=== PATIENT | female | born 1940 | race Caucasian/White ===

== ENCOUNTER → 2016-04-26 | Outpatient (CLI) | payer MEDICARE ==
[2016-04-26 09:10] LABS: Blood Urea Nitrogen 16 mg/dL (7-17); Non-African American GFR(MDRD) >60 (>60 ml/min/1.73 sqM)
--- NOTE | 2016-04-26 09:56 | CT ---
EXAMINATION TYPE: CT chest w con DATE OF EXAM: 04/26/2016 9:30 AM COMPARISON: Previous study dated 10/21/2015. HISTORY: Patient has no complaints at time of service. Follow up study for known lung nodules. CT DLP: 301.5 mGycm Automated exposure control for dose reduction was used. CONTRAST: CT scan of the chest is performed with IV Contrast, patient injected with 100 mL of Omnipaque 300. FINDINGS: There are diffuse emphysematous changes throughout the lungs. There is apical scarring bila terally. There are multiple pulmonary nodules. A lesion seen previously near the left hilum has increased in s ize from 3.9 mm to 5 mm. There is a stable 2 mm lesion in the anterior segment of the right upper lob e, best seen on image 14. There is a stable 2 mm subpleural nodule in the lateral segment of the righ t upper lobe best seen on image 16. A lesion seen in the right midlung previously measuring 2.8 mm no w measures 3.4 mm. This is best seen on image 28. Just inferior to this is a 4.2 mm lesion that was n ot visualized previously. This is best seen on image 30. There is a stable 3.6 mm lesion in the poste rior aspect of the right middle lobe, best seen on image 40. No other definite nodules are seen. There has been a previous left mastectomy. There is no significant axillary, internal mammary, mediastinal or hilar adenopathy. There is no pleu ral or pericardial fluid. The heart is not enlarged. The aortic root is upper limits of normal in size measuring 3.5 cm. There is minor aneurysmal dilatat ion of the proximal arch which measures 3.1 cm. The remainder the aorta is normal in caliber. There is a small hiatal hernia. Visualized portions of the upper abdomen are otherwise unremarkable. There is mild hypertrophic spondylosis within the spine. IMPRESSION: 1. STATUS POST LEFT MASTECTOMY. 2. DIFFUSE EMPHYSEMATOUS CHANGE. 3. MULTIPLE PULMONARY NODULES. AT LEAST ONE OF THESE WAS NOT VISUALIZED PREVIOUSLY AND SEVERAL HAVE I NCREASED IN SIZE. THIS IS SUSPICIOUS FOR METASTATIC DISEASE. 4. MILD ANEURYSMAL DILATATION OF THE ASCENDING THORACIC AORTA. 5. SMALL HIATAL HERNIA. 6. MINIMAL DEGENERATIVE CHANGES WITHIN THE SPINE.
[2016-04-26 17:04] VITALS: RESP 18
[2016-04-26 17:06] VITALS: BP 137/82; PULSE 66
== END | disposition home or self-care (01) ==
LOC: RADCTMAIN 08:22
PROVIDERS: ATTEND Family Medicine
DX: R91.8 Other nonspecific abnormal finding of lung field (principal); J43.9 Emphysema, unspecified; K44.9 Diaphragmatic hernia without obstruction or gangrene; I71.2 Thoracic aortic aneurysm, without rupture; Z90.10 Acquired absence of unspecified breast and nipple
CPT/HCPCS: 82565; 84520; 71260; 36415; Q9967

== ENCOUNTER → 2016-08-09 | Outpatient (CLI) | payer MEDICARE ==
[2016-08-09 12:24] LABS: Blood Urea Nitrogen 15 mg/dL (7-17); Non-African American GFR(MDRD) >60 (>60 ml/min/1.73 sqM)
--- NOTE | 2016-08-09 13:19 | CT ---
EXAMINATION TYPE: CT chest w con DATE OF EXAM: 08/09/2016 COMPARISON: Previous study dated 04/26/2016 and a previous PET/CT dated 05/05/2016. HISTORY: Left breast cancer, follow up CT DLP: 356.3 mGycm Automated exposure control for dose reduction was used. CONTRAST: CT scan of the chest is performed with IV Contrast, patient injected with 100 mL of Omnipaque 300. FINDINGS: There has been a previous left-sided mastectomy. Pulmonary nodule in the anterior aspect of the right middle lobe previously measured 6 mm and now lisa sures 4.4 mm. Previous right upper lobe pulmonary nodule measuring 2 mm is barely visible on today's examination. There is a 3.2 mm nodule in the lateral aspect of the right lung which was not definitel y seen previously. There is a stable 2 mm lesion in the lateral segment of the right upper lobe, best seen on image 18. There is a stable 3.6 mm nodule along the major fissure on the right. No definite new nodules are seen. There is no significant axillary, internal mammary, mediastinal or hilar adenopathy. There is no pleural or pericardial fluid. The heart is not enlarged. The aortic root remains stable a t 3.5 cm. The aorta at the level of the proximal arch is aneurysmal measuring 3.2 cm. The remainder t he aorta is normal. There is a small hiatal hernia. Visualized portions of the upper abdomen are unremarkable. There is minor hypertrophic spondylosis within the spine. IMPRESSION: 1. Stable or improved pulmonary nodules. I do not see evidence of new nodularity. 2. Status post left mastectomy. 3. Aneurysmal dilatation of the ascending thoracic aorta. 4. Small hiatal hernia. 5. Mild degenerative changes within the spine.
== END | disposition home or self-care (01) ==
LOC: RADCTMAIN 11:45
PROVIDERS: ATTEND Internal Medicine Hematology & Oncology
DX: C50.919 Malignant neoplasm of unspecified site of unspecified female breast (principal); R91.8 Other nonspecific abnormal finding of lung field; I71.2 Thoracic aortic aneurysm, without rupture; Z90.12 Acquired absence of left breast and nipple
CPT/HCPCS: 82565; 84520; 71260; 36415; Q9967

== ENCOUNTER → 2016-10-30 | Outpatient (CLI) | payer MEDICARE ==
--- NOTE | 2016-10-30 13:58 | MM ---
Reason for exam: additional evaluation requested from prior study. Last mammogram was performed 1 year ago. History: Patient is postmenopausal and has history of breast cancer at age 44. Family history of breast cancer in aunt at age 50. Benign US biopsy breast VAD RT of the right breast, October 11, 2014. Benign excisional biopsy of the right breast, March 29, 2000. Stereotactic core biopsy of the right breast, March 14, 2000. Excisional biopsy of the right breast, 1986. Mastectomy of the left breast, 1985. Core biopsy of the right breast. Excisional biopsy of the left breast. Took hormonal contraceptives for 10 years. Physical Findings: Nurse did not find any significant physical abnormalities on exam. MG 3D Diag Mammo W/Cad RT CC, MLO, and ML view(s) were taken of the right breast. Prior study comparison: October 21, 2015, right breast MG 3d diag mammo w/cad RT. October 11, 2014, right breast MG diagnostic mammo RT wo CAD. The breast tissue is heterogeneously dense. This may lower the sensitivity of mammography. Stable benign calcifications. Previous mammotome biopsy in the right breast. Stable post operative distortion. These results were verbally communicated with the patient and result sheet given to the patient on 10/30/16. ASSESSMENT: Benign, BI-RAD 2 RECOMMENDATION: Follow-up diagnostic mammogram of the right breast in 1 year.
== END | disposition home or self-care (01) ==
LOC: RADMAMWWP 13:20
PROVIDERS: ATTEND Family Medicine
DX: C50.912 Malignant neoplasm of unspecified site of left female breast (principal)
CPT/HCPCS: G0206; G0279

== ENCOUNTER → 2017-10-31 | Outpatient (CLI) | payer MEDICARE ==
--- NOTE | 2017-10-31 12:13 | MM ---
Reason for exam: additional evaluation requested from prior study. Last mammogram was performed 1 year ago. History: Patient is postmenopausal and has history of breast cancer at age 44. Family history of breast cancer in aunt at age 50. Benign US biopsy breast VAD RT of the right breast, October 11, 2014. Benign excisional biopsy of the right breast, March 29, 2000. Stereotactic core biopsy of the right breast, March 14, 2000. Excisional biopsy of the right breast, 1986. Mastectomy of the left breast, 1985. Core biopsy of the right breast. Excisional biopsy of the left breast. Took hormonal contraceptives for 10 years. Physical Findings: Nurse did not find any significant physical abnormalities on exam. MG 3D Diag Mammo W/Cad RT CC and MLO view(s) were taken of the right breast. Prior study comparison: October 30, 2016, right breast MG 3d diag mammo w/cad RT. October 21, 2015, right breast MG 3d diag mammo w/cad RT. There are scattered fibroglandular densities. Finding: There are diffuse/scattered calcifications in the right breast. Previous mammotome biopsy in the right breast x 2. No significant changes in finding since October 30, 2016 and October 21, 2015. These results were verbally communicated with the patient and result sheet given to the patient on 10/31/17. ASSESSMENT: Benign, BI-RAD 2 RECOMMENDATION: Follow-up diagnostic mammogram of the right breast in 1 year.
== END | disposition home or self-care (01) ==
LOC: RADMAMWWP 10:14
PROVIDERS: ATTEND Family Medicine
DX: C50.912 Malignant neoplasm of unspecified site of left female breast (principal)
CPT/HCPCS: 77065; G0279; 77061

== ENCOUNTER → 2018-04-02 | Outpatient (CLI) | payer MEDICARE ==
--- NOTE | 2018-04-02 11:27 | BD ---
EXAMINATION TYPE: Axial Bone Density DATE OF EXAM: 04/02/2018 COMPARISON: 04/11/2010 CLINICAL HISTORY: Height: 66 IN Weight: 181 LBS FRAX RISK QUESTIONS: History of Fracture in Adulthood: YES RT EL[place]OW AGE 55 RISK FACTORS HISTORY OF: Active: YES Postmenopausal woman: YES AGE 49 MEDICATIONS: Additional Medications: LIPITOR, 81 MG ASPIRIN, ZYRTEC Additional History: BREAST CANCER EXAM MEASUREMENTS: Bone mineral densitometry was performed using the ISpeak System. Bone mineral density as measured about the Lumbar spine is: ----- L1-L4(G/cm2): 1.351 T Score Values are as follows: ----- L2: 0.5 ----- L3: 1.8 ----- L4: 2.3 ----- L1-L4: 1.4 Bone mineral density has: Increased 6.5% since study of: 04/11/2010 Bone mineral density about the R hip (g/cm2): 0.906 Bone mineral density about the L hip (g/cm2): 0.939 T Score values are as follows: -----R Neck: -0.9 -----L Neck: -0.7 -----R Total: -0.5 -----L Total: -0.1 Bone mineral density has: Increased 4.0% since study of: 04/11/2010 IMPRESSION: No evidence for osteoporosis or osteopenia. NOTE: T-SCORE=SD OF THE YOUNG ADULT MEAN.
== END | disposition home or self-care (01) ==
LOC: RADBDWWP 08:41
PROVIDERS: ATTEND Family Medicine
DX: Z13.820 Encounter for screening for osteoporosis (principal); M89.9 Disorder of bone, unspecified
CPT/HCPCS: 77080

== ENCOUNTER → 2018-12-08 | Outpatient (CLI) | payer MEDICARE ==
--- NOTE | 2018-12-08 14:30 | MM ---
Reason for exam: additional evaluation requested from prior study. Last mammogram was performed 1 year and 1 month ago. History: Patient is postmenopausal and has history of breast cancer at age 44. Family history of breast cancer in aunt at age 50. Benign US biopsy breast VAD RT of the right breast, October 11, 2014. Benign excisional biopsy of the right breast, March 29, 2000. Stereotactic core biopsy of the right breast, March 14, 2000. Excisional biopsy of the right breast, 1986. Mastectomy of the left breast, 1985. Core biopsy of the right breast. Excisional biopsy of the left breast. Took hormonal contraceptives for 10 years. Physical Findings: Nurse did not find any significant physical abnormalities on exam. MG 3D Diag Mammo W/Cad RT CC and MLO view(s) were taken of the right breast. Prior study comparison: October 31, 2017, right breast MG 3d diag mammo w/cad RT. October 30, 2016, right breast MG 3d diag mammo w/cad RT. The breast tissue is heterogeneously dense. This may lower the sensitivity of mammography. Benign appearing calcifications in the right breast. Right biopsy markers and post surgical change. These results were verbally communicated with the patient and result sheet given to the patient on 12/08/18. ASSESSMENT: Benign, BI-RAD 2 RECOMMENDATION: Follow-up diagnostic mammogram of the right breast in 1 year.
== END | disposition home or self-care (01) ==
LOC: RADMAMWWP 13:18
PROVIDERS: ATTEND Family Medicine
DX: R92.8 Other abnormal and inconclusive findings on diagnostic imaging of breast (principal); Z90.12 Acquired absence of left breast and nipple
CPT/HCPCS: 77065; G0279; 77061

== ENCOUNTER → 2019-10-01 | Outpatient (CLI) | payer MEDICARE ==
--- NOTE | 2019-10-01 15:51 | US ---
EXAMINATION TYPE: US venous doppler duplex LE LT DATE OF EXAM: 10/01/2019 3:35 PM COMPARISON: NONE CLINICAL HISTORY: I80.9 Phlebitis/thrombophlebitis L leg. Pain SIDE PERFORMED: Left TECHNIQUE: The lower extremity deep venous system is examined utilizing real time linear array sonog heriberto with graded compression, doppler sonography and color-flow sonography. VESSELS IMAGED: External Iliac Vein (EIV) Common Femoral Vein Deep Femoral Vein Greater Saphenous Vein * Femoral Vein Popliteal Vein Small Saphenous Vein * Proximal Calf Veins (* superficial vessels Left Leg: Negative for DVT IMPRESSION: 1. No diagnostic evidence of DVT as visualized
== END | disposition home or self-care (01) ==
LOC: RADUSWWP 14:58
PROVIDERS: ATTEND Orthopaedic Surgery
DX: M25.562 Pain in left knee (principal); I80.9 Phlebitis and thrombophlebitis of unspecified site

== ENCOUNTER → 2019-12-21 | Outpatient (CLI) | payer MEDICARE ==
--- NOTE | 2019-12-22 09:58 | MM ---
Reason for exam: additional evaluation requested from prior study. Last mammogram was performed 1 year ago. History: Patient is postmenopausal and has history of breast cancer at age 44. Family history of breast cancer in aunt at age 50. Benign US biopsy breast VAD RT of the right breast, October 11, 2014. Benign excisional biopsy of the right breast, March 29, 2000. Stereotactic core biopsy of the right breast, March 14, 2000. Excisional biopsy of the right breast, 1986. Mastectomy of the left breast, 1985. Core biopsy of the right breast. Excisional biopsy of the left breast. Took hormonal contraceptives for 10 years. Physical Findings: Nurse did not find any significant physical abnormalities on exam. MG 3D Diag Mammo W/Cad RT CC and MLO view(s) were taken of the right breast. Prior study comparison: December 08, 2018, right breast MG 3d diag mammo w/cad RT. October 31, 2017, right breast MG 3d diag mammo w/cad RT. There are scattered fibroglandular densities. Previous mammotome biopsy in the right breast x 2. Central superior nodularity unchanged from 2017. No significant new findings when compared with previous films. These results were verbally communicated with the patient and result sheet given to the patient on 12/21/19. ASSESSMENT: Benign, BI-RAD 2 RECOMMENDATION: Follow-up diagnostic mammogram of the right breast in 1 year.
== END | disposition home or self-care (01) ==
LOC: RADMAMWWP 14:40
PROVIDERS: ATTEND Family Medicine
DX: R92.8 Other abnormal and inconclusive findings on diagnostic imaging of breast (principal)
CPT/HCPCS: 77065; G0279; 77061

== ENCOUNTER → 2019-12-28 | Outpatient (CLI) | payer MEDICARE ==
[2019-12-28 10:59] LABS: African American GFR (CKD) >90 (>60 ml/min/1.73 sqM); Blood Urea Nitrogen 14 mg/dL (7-17); Non-African American GFR(CKD) 85 (>60 ml/min/1.73 sqM)
--- NOTE | 2019-12-29 20:59 | CT ---
EXAMINATION TYPE: CT urogram wo/w con DATE OF EXAM: 12/28/2019 HISTORY: Gross Hematuria CT DLP: 2299mGycm Automated Exposure Control for Dose Reduction was Utilized. CONTRAST: CT scan of the abdomen and pelvis is performed without and with IV Contrast utilizing CT urogram prot ocol, patient injected with 100 mL of Isovue 370. COMPARISON: None FINDINGS: LUNG BASES: Normal. LIVER: Normal. BILIARY SYSTEM: Normal. PANCREAS: Normal. SPLEEN: Normal. ADRENALS: Normal. KIDNEYS: There is synchronous and homogenous renal enhancement and excretion. Left kidney 1.8 cm simp le cyst and 2 additional too small to characterize hypodense lesions. UROTHELIAL SYSTEM: No hydronephrosis or hydroureter. No urolithiasis. No abnormal urothelial enhancem ent, stricture, obstruction, or mass. Urinary bladder is normal with no evidence of thickening or uro thelial mass. BOWEL: No obstruction or thickening. Normal appendix. PERITONEUM: No pneumoperitoneum. No free fluid. Tiny fat-containing supraumbilical ventral hernia. LYMPH NODES: No lymphadenopathy. PELVIS: Normal. VASCULATURE: No abdominal aortic aneurysm. MUSCULOSKELETAL: Degenerative changes of the spine. IMPRESSION: 1. No findings to explain patient's hematuria. No urothelial abnormality or mass. 2. Left renal simple cyst and too small to characterize hypodense lesions.
== END | disposition home or self-care (01) ==
LOC: RADCTMAIN 10:13
PROVIDERS: ATTEND Urology
DX: N28.1 Cyst of kidney, acquired (principal)
CPT/HCPCS: 82565; 84520; 74178; 36415; 74400; Q9967

== ENCOUNTER 2020-08-29 17:57 | Observation (INO) | payer MEDICARE ==
--- NOTE | 2020-08-29 18:35 | ED ---
General Adult HPI - General Chief complaint: Chest Pain Stated complaint: chest pain, dizziness Time Seen by Provider: 08/29/20 18:16 Source: patient, family, RN notes reviewed, old records reviewed Mode of arrival: ambulatory - History of Present Illness Initial comments: This is a 80-year-old female history of breast cancer also a recent diagnosis of atrial fibrillation in June of this year who presents with complaints of dizziness lightheadedness and she states her watch that her heart rate was in atrial fibrillation with verbal rates. She currently is asymptomatic but she felt lightheaded dizzy when she was upright. No complaints at this time. Heart regular was noted be 30 9H [place]. - Related Data Allergies Allergy/AdvReac Type Severity Reaction Status Date / Time No Known Allergies Allergy Verified 08/29/20 18:08 Review of Systems ROS Statement: Those systems with pertinent positive or pertinent negative responses have been documented in the HPI. ROS Other: All systems not noted in ROS Statement are negative. Past Medical History Past Medical History: Atrial Fibrillation History of Any Multi-Drug Resistant Organisms: None Reported Past Surgical History: Breast Surgery Past Psychological History: No Psychological Hx Reported Smoking Status: Former smoker Past Alcohol Use History: None Reported Past Drug Use History: None Reported General Exam - General Exam Comments Initial Comments: Is a well-developed well-nourished awake alert oriented 3 female General appearance: alert, in no apparent distress Head exam: Present: atraumatic, normocephalic, normal inspection Eye exam: Present: normal appearance, PERRL, EOMI. Absent: scleral icterus, conjunctival injection, periorbital swelling ENT exam: Present: normal exam, mucous membranes moist Neck exam: Present: normal inspection. Absent: tenderness, meningismus, lymphadenopathy Respiratory exam: Present: normal lung sounds bilaterally. Absent: respiratory distress, wheezes, rales, rhonchi, stridor Cardiovascular Exam: Present: regular rate, normal rhythm, normal heart sounds. Absent: systolic murmur, diastolic murmur, rubs, gallop, clicks GI/Abdominal exam: Present: soft, normal bowel sounds. Absent: distended, tenderness, guarding, rebound, rigid Extremities exam: Present: normal inspection, full ROM, normal capillary refill. Absent: tenderness, pedal edema, joint swelling, calf tenderness Back exam: Present: normal inspection Neurological exam: Present: alert, oriented X3, CN II-XII intact Psychiatric exam: Present: normal affect, normal mood Skin exam: Present: warm, dry, intact, normal color. Absent: rash Course Vital Signs 08/29/20 08/29/20 18:04 19:23 Temperature 97.9 F Pulse Rate 39 L 58 L Respiratory 18 18 Rate Blood Pressure 165/80 155/80 O2 Sat by Pulse 98 100 Oximetry EKG Findings - EKG Results: EKG: interpreted by DARY, sinus rhythm (Sinus rhythm a 64. Interval 192 QRS duration 134 QT since QTC 46/14 possible left atrial enlargement right bundle- branch block pattern) Medical Decision Making - Medical Decision Making I did discuss findings the patient family and with Dr. Huerta. Patient is clinically stable at this time she'll be admitted with cardiology consultation. - Radiology Data Radiology results: report reviewed (Imaging reviewed no acute findings), image reviewed Disposition Clinical Impression: Bradycardia Disposition: ADMITTED IP TO THIS [facility] Condition: Fair Referrals: Sapphire Boone MD [Primary Care Provider] - 1-2 days
--- NOTE | 2020-08-29 19:50 | XR ---
EXAMINATION TYPE: XR chest 2V DATE OF EXAM: 08/29/2020 COMPARISON: NONE HISTORY: Dysrhythmia TECHNIQUE: 2 views FINDINGS: Heart is normal. Lungs are clear of consolidation. There are no hilar masses. Thoracic aort a is atheromatous. There are chest leads. Costophrenic angles are clear. IMPRESSION: No active cardiopulmonary disease.
[2020-08-29] MEDS ORDERED: NALOXONE 0.4 MG/ML 1 ML VIAL IV PRN (19:53)
[2020-08-29] MEDS: SODIUM CHLORIDE 0.9% 1,000 ML IV SCH (20:13)
[2020-08-29 20:30] LABS: Basophils # (A) 0.1 k/uL (0-0.2); Basophils % (A) 1 %; Eosinophils # (A) 0.3 k/uL (0-0.7); Eosinophils % (A) 4 %; HCT 42.9 % (34.0-46.0); HGB 14.4 gm/dL (11.4-16.0); Lymphocytes # (A) 2.1 k/uL (1.0-4.8); Lymphocytes % (A) 25 %; MCH 31.4 pg (25.0-35.0); MCHC 33.7 g/dL (31.0-37.0); MCV 93.2 fL (80.0-100.0); Mean Platelet Volume 8.2; Monocytes # (A) 0.8 k/uL (0-1.0); Monocytes % (A) 10 %; Neutrophils % (A) 59 %; Platelet Count 261 k/uL (150-450); WBC 8.4 k/uL (3.8-10.6)
[2020-08-29 20:39] LABS: INR 0.9 (<1.2); Partial Thromboplastin Time 23.7 sec (22.0-30.0); Prothrombin Time 10.2 sec (9.0-12.0)
[2020-08-29 20:41] LABS: ALT 27 U/L (4-34); AST 34 U/L (14-36); African American GFR (CKD) >90 (>60 ml/min/1.73 sqM); Albumin 3.7 g/dL (3.5-5.0); Alkaline Phosphatase 111 U/L (38-126); Anion Gap 5 mmol/L; Blood Urea Nitrogen 16 mg/dL (7-17); Calcium 9.1 mg/dL (8.4-10.2); Carbon Dioxide 27 mmol/L (22-30); Chloride 109 mmol/L (98-107); Creatine Kinase 58 U/L (30-135); Glucose 87 mg/dL (74-99); Magnesium 2.4 mg/dL (1.6-2.3); Non-African American GFR(CKD) 81 (>60 ml/min/1.73 sqM); Potassium 4.6 mmol/L (3.5-5.1); Sodium 141 mmol/L (137-145); Total Bilirubin 0.3 mg/dL (0.2-1.3); Total Protein 6.2 g/dL (6.3-8.2)
[2020-08-29] MEDS: APIXABAN 5 MG TAB PO SCH (23:57)
[2020-08-29] MEDS: ATORVASTATIN 10 MG TAB PO SCH (23:57)
[2020-08-30 07:28] LABS: Basophils # (A) 0.1 k/uL (0-0.2); Basophils % (A) 1 %; Eosinophils # (A) 0.3 k/uL (0-0.7); Eosinophils % (A) 4 %; HCT 43.4 % (34.0-46.0); HGB 14.7 gm/dL (11.4-16.0); Lymphocytes # (A) 1.8 k/uL (1.0-4.8); Lymphocytes % (A) 24 %; MCH 31.8 pg (25.0-35.0); MCHC 33.8 g/dL (31.0-37.0); Mean Platelet Volume 7.7; Monocytes # (A) 0.6 k/uL (0-1.0); Monocytes % (A) 8 %; Neutrophils # (A) 4.5 k/uL (1.3-7.7); Neutrophils % (A) 61 %; Platelet Count 257 k/uL (150-450); RBC 4.62 m/uL (3.80-5.40); WBC 7.3 k/uL (3.8-10.6)
[2020-08-30 07:34] LABS: ALT 25 U/L (4-34); AST 33 U/L (14-36); African American GFR (CKD) >90 (>60 ml/min/1.73 sqM); Albumin 3.7 g/dL (3.5-5.0); Alkaline Phosphatase 112 U/L (38-126); Anion Gap 4 mmol/L; Blood Urea Nitrogen 15 mg/dL (7-17); Calcium 8.9 mg/dL (8.4-10.2); Carbon Dioxide 29 mmol/L (22-30); Chloride 110 mmol/L (98-107); Glucose 96 mg/dL (74-99); Non-African American GFR(CKD) 85 (>60 ml/min/1.73 sqM); Potassium 4.5 mmol/L (3.5-5.1); Sodium 143 mmol/L (137-145); Total Bilirubin 0.5 mg/dL (0.2-1.3); Total Protein 6.1 g/dL (6.3-8.2)
[2020-08-30] MEDS: ZINC SULFATE 220 MG CAP PO SCH (08:05)
[2020-08-30] MEDS: APIXABAN 5 MG TAB PO SCH ×2 (08:05→19:51)
[2020-08-30] MEDS: CHOLECALCIFEROL 25 MCG (1000 IU) TABLET PO SCH (08:05)
[2020-08-30] MEDS: ASCORBIC ACID 500 MG TAB PO SCH (08:05)
[2020-08-30] MEDS ORDERED: NON FORMULARY DRUG (Biotin [Biotin] 10,000 MCG Capsule) PO SCH (09:00)
[2020-08-30] MEDS ORDERED: ASPIRIN 81 MG PO SCH (09:00)
[2020-08-30] MEDS ORDERED: NON FORMULARY DRUG (Selenium [Selenium] 100 MCG Tablet) PO SCH (09:00)
[2020-08-30] MEDS ORDERED: amLODIPine 5 MG TAB PO SCH (09:30)
--- NOTE | 2020-08-30 12:40 | P.CRDCN ---
History of Present Illness History of present illness: HISTORY OF PRESENTING ILLNESS This is a pleasant 80-year-old female past medical history significant for paroxysmal atrial fibrillation, hyperlipidemia. She follows with Dr. Cici Ovalle in [place]. We have been asked to see in consultation for atrial fibrillation and bradycardia. She has been diagnosed with atrial fibrillation this year. She follows with Dr. Ovalle. She had a [employer] event monitor placed last month. She also recently had a stress test and echocardiogram earlier this month with her gerentological physiotherapist. Yesterday afternoon around 4pm she was with her daughter doing her normal daily activities. She began to have lightheadedness, dizziness, felt that she may pass out. She does occasionally feel palpitations. She monitored her heart rate on her [employer] and it read as her heart rate in the 150s, then would drop down and she knew she was in atrial fibrillation. She did take her metoprolol tartrate 25mg yesterday around 4-5pm when her heart rate was elevated. She states this has happened to her 3 times and she is always symptomatic. She was called by her gerentological physiotherapist office that "her heart had stopped" when asked more in detail she states she had around 10 second pauses on the monitor and was told to go to the emergency department for a pacemaker. She was told her stress test and echocardiogram were normal. Patient denies syncope or loss of consciousness, chest pain, shortness of breath, lower extremity edema, fatigue, weakness. Denies symptoms of orthopnea or PND. Denies history of coronary artery disease, diabetes, stroke, [place]. Her current home daily cardiac meds include metoprolol titrate 25 mg twice a day, atorvastatin 10 mg nightly, aspirin 81 mg daily, Eliquis 5 mg twice a day. Denies alcohol use. She is a nonsmoker. DIAGNOSTICS EKG reveals sinus rhythm, heart rate 64, right bundle-branch block, T wave inversion in lead V2 and V3. EKG 08/30 3:30 AM shows sinus bradycardia heart rate 57, right bundle-branch block, T wave inversions in V2. No prior EKGs to compare. Telemetry tracings indicate sinus mechanism heart rate 50-60, no pauses and no atrial fibrillation noted Chest xray no active cardiopulmonary process. Laboratory reviewed, CBC unremarkable, sodium 141, potassium 4.6, BUN 16, serum creatinine 0.71, magnesium 2.4, liver enzymes within normal limits, TSH within normal limits, troponin negative 1, COVID-19 negative REVIEW OF SYSTEMS At the time of my exam: CONSTITUTIONAL: Denies fever or chills. CARDIOVASCULAR: +palpitations Denies chest pain, shortness of breath, orthopnea, PND RESPIRATORY: Denies cough. GASTROINTESTINAL: Denies abdominal pain, diarrhea, constipation, nausea or vomiting. MUSCULOSKELETAL: Denies myalgias. NEUROLOGIC: +lightheadedness, +dizziness, +pre-syncope Denies numbness, tingling, headacbe or weakness. ENDOCRINE: Denies fatigue, weight change, polydipsia or polyurina. GENITOURINARY: Denies burning, hematuria or urgency with micturation. HEMATOLOGIC: Denies history of anemia or bleeding. PHYSICAL EXAMINATION CONSTITUTIONAL: No apparent distress. HEENT: Head is normocephalic. Pupils are equal, round. Sclerae anicteric. Mucous membranes of the mouth are moist. No JVD. No carotid bruit. CHEST EXAMINATION: Lungs are clear to auscultation. No chest wall tenderness is noted on palpation or with deep breathing. HEART EXAMINATION: Regular rate and rhythm. S1, S2 heard. No murmurs, gallops or rub. ABDOMEN: Soft, nontender. Positive bowel sounds. EXTREMITIES: 2+ peripheral pulses, no lower extremity edema and no calf tenderness. SKIN: intact NEUROLOGIC EXAMINATION: Patient is awake, alert and oriented x3. ASSESSMENT Lightheadedness, Dizziness Paroxysmal atrial fibrillation -[id number] score 4. On Eliquis 5mg BID. currently maintaining sinus mechanism Bradycardia possible sick sinus syndrome Hypertension PLAN -Will hold patient's metoprolol tartrate -Continue cardiac telemetry for 24 hours -Start amlodipine 5mg daily for hypertension -Continue anticoagulation Eliquis 5mg BID -Continue statin -Will obtain records from patient's event monitor in regards to the event that happened yesterday -Will obtain records from Dr. Ovalle office -Further recommendations based on clinical course Nurse Practitioner note has been reviewed, I agree with a documented findings and plan of care. Patient was seen and examined. Past Medical History Past Medical History: Atrial Fibrillation History of Any Multi-Drug Resistant Organisms: None Reported Past Surgical History: Breast Surgery Past Psychological History: No Psychological Hx Reported Smoking Status: Former smoker Past Alcohol Use History: None Reported Past Drug Use History: None Reported Medications and Allergies Home Medications Medication Instructions Recorded Confirmed Type Apixaban [Eliquis] 5 mg PO BID 08/29/20 08/29/20 History Ascorbic Acid [Vitamin C] 500 mg PO DAILY 08/29/20 08/29/20 History Aspirin EC [Ecotrin Low Dose] 81 mg PO DAILY 08/29/20 08/29/20 History Atorvastatin [Lipitor] 10 mg PO HS 08/29/20 08/29/20 History Biotin 10,000 mcg PO DAILY 08/29/20 08/29/20 History Cholecalciferol [Vitamin D3 (25 50 mcg PO DAILY 08/29/20 08/29/20 History Mcg = 1000 Iu)] Metoprolol Tartrate 25 mg PO BID 08/29/20 08/29/20 History Selenium 100 mcg PO DAILY 08/29/20 08/29/20 History Zinc 50 mg PO DAILY 08/29/20 08/29/20 History Allergies Allergy/AdvReac Type Severity Reaction Status Date / Time No Known Allergies Allergy Verified 08/29/20 20:59 Physical Exam Vitals: Vital Signs Temp Pulse Pulse Resp BP BP Pulse Ox 08/30/20 08:05 98 F 54 L 16 176/82 97 08/30/20 04:00 53 L 18 182/95 98 08/30/20 00:00 60 18 162/81 96 08/29/20 21:33 97.3 F L 49 L 18 181/88 96 08/29/20 21:17 97.9 F 54 L 18 160/92 96 08/29/20 20:20 54 L 18 160/92 96 08/29/20 19:23 58 L 18 155/80 100 08/29/20 18:04 97.9 F 39 L 18 165/80 98 Intake and Output 08/29/20 08/30/20 08/30/20 22:59 06:59 14:59 Intake Total 960 0 0 Balance 960 0 0 Intake: Oral 960 0 0 Other: Voiding Method Toilet # Voids 1 1 Weight 79.379 kg 81.3 kg Results 08/30/20 06:18 08/30/20 06:18 Cardiac Enzymes 08/29/20 08/29/20 08/30/20 Range/Units 19:35 19:35 06:18 AST 34 33 (14-36) U/L Troponin I <0.012 (0.000-0.034) ng/mL Coagulation 08/29/20 Range/Units 19:35 PT 10.2 (9.0-12.0) sec APTT 23.7 (22.0-30.0) sec CBC 08/29/20 08/30/20 Range/Units 19:35 06:18 WBC 8.4 7.3 (3.8-10.6) k/uL RBC 4.60 4.62 (3.80-5.40) m/uL Hgb 14.4 14.7 (11.4-16.0) gm/dL Hct 42.9 43.4 (34.0-46.0) % Plt Count 261 257 (150-450) k/uL Comprehensive Metabolic Panel 08/29/20 08/30/20 Range/Units 19:35 06:18 Sodium 141 143 (137-145) mmol/L Potassium 4.6 4.5 (3.5-5.1) mmol/L Chloride 109 H 110 H (98-107) mmol/L Carbon Dioxide 27 29 (22-30) mmol/L BUN 16 15 (7-17) mg/dL Creatinine 0.71 0.61 (0.52-1.04) mg/dL Glucose 87 96 (74-99) mg/dL Calcium 9.1 8.9 (8.4-10.2) mg/dL AST 34 33 (14-36) U/L ALT 27 25 (4-34) U/L Alkaline Phosphatase 111 112 (38-126) U/L Total Protein 6.2 L 6.1 L (6.3-8.2) g/dL Albumin 3.7 3.7 (3.5-5.0) g/dL Current Medications Generic Name Dose Route Start Last Admin Trade Name Freq PRN Reason Stop Dose Admin Apixaban 5 mg 08/29/20 23:00 08/30/20 08:05 Apixaban 5 Mg Tab PO 5 mg BID KENDELL Administration Protocol Ascorbic Acid 500 mg 08/30/20 09:00 08/30/20 08:05 Ascorbic Acid 500 Mg Tab PO 500 mg DAILY KENDELL Administration Aspirin 81 mg 08/30/20 09:00 08/30/20 08:05 Aspirin 81 Mg PO 81 mg DAILY KENDELL Administration Atorvastatin Calcium 10 mg 08/29/20 23:00 08/29/20 23:57 Atorvastatin 10 Mg Tab PO 10 mg HS KENDELL Administration Cholecalciferol 50 mcg 08/30/20 09:00 08/30/20 08:05 Cholecalciferol 25 Mcg (1000 Iu) Tablet PO 50 mcg DAILY KENDELL Administration Sodium Chloride 1,000 mls @ 20 mls/hr 08/29/20 20:00 08/29/20 20:13 Saline 0.9% IV 20 mls/hr .Q24H KENDELL Administration Naloxone HCl 0.2 mg 08/29/20 19:53 Naloxone 0.4 Mg/Ml 1 Ml Vial IV Q2M PRN Opioid Reversal Zinc Sulfate 220 mg 08/30/20 09:00 08/30/20 08:05 Zinc Sulfate 220 Mg Cap PO 220 mg DAILY KENDELL Administration Intake and Output 08/29/20 08/30/20 08/30/20 22:59 06:59 14:59 Intake Total 960 0 0 Balance 960 0 0 Intake: Oral 960 0 0 Other: Voiding Method Toilet # Voids 1 1 Weight 79.379 kg 81.3 kg 08/30/20 06:18 08/30/20 06:18
[2020-08-30] MEDS ORDERED: amLODIPine 5 MG TAB PO STA (12:50)
--- NOTE | 2020-08-30 18:05 | P.HPIM ---
History of Present Illness H&P Date: 08/30/20 Anisha De La Rosa, is an 80 year old female who presented to [facility] with a chief complaint of dizziness and lightheadedness She was evaluated in emergency room vital examination on presentation revealed a temperature of 96.6 pulse 59 respiration 16 blood pressure 163/93 pulse ox 96% on room air, patient was noticed to have evidence of bradycardia with heart rate in the 40s and 50s Laboratory data reveals a white blood count of 8.4 hemoglobin 14.4 platelet count 261 BUN 16 creatinine 0.71 Anderson virus PCR was negative Chest x-ray done in the emergency room did not reveal any acute cardiopulmonary disease, EKG done in the emergency room revealed normal sinus rhythm with right bundle branch block Patient was admitted to telemetry floor cardiology consultation was requested Her past medical history is significant for history of hypertension, history of hyperlipidemia, history of atrial fibrillation, history of breast cancer, there is a history of remote tobacco use patient stated that she quit 30 years ago. On review of systems at this time Patient is alert and oriented x 3 in no distress, she denies any complaints there is no fever or chills no headache or dizziness no chest pain no shortness of breath no palpitation no cough no nausea or vomiting no abdominal pain no diarrhea no blood in the stools no burning with urination no frequency or urgency and no hematuria, there is no weakness or numbness in any of the extremities no change in vision speech or gait. Past Medical History Past Medical History: Atrial Fibrillation History of Any Multi-Drug Resistant Organisms: None Reported Past Surgical History: Breast Surgery Past Psychological History: No Psychological Hx Reported Smoking Status: Former smoker Past Alcohol Use History: None Reported Past Drug Use History: None Reported Medications and Allergies Home Medications Medication Instructions Recorded Confirmed Type Apixaban [Eliquis] 5 mg PO BID 08/29/20 08/29/20 History Ascorbic Acid [Vitamin C] 500 mg PO DAILY 08/29/20 08/29/20 History Aspirin EC [Ecotrin Low Dose] 81 mg PO DAILY 08/29/20 08/29/20 History Atorvastatin [Lipitor] 10 mg PO HS 08/29/20 08/29/20 History Biotin 10,000 mcg PO DAILY 08/29/20 08/29/20 History Cholecalciferol [Vitamin D3 (25 50 mcg PO DAILY 08/29/20 08/29/20 History Mcg = 1000 Iu)] Metoprolol Tartrate 25 mg PO BID 08/29/20 08/29/20 History Selenium 100 mcg PO DAILY 08/29/20 08/29/20 History Zinc 50 mg PO DAILY 08/29/20 08/29/20 History Allergies Allergy/AdvReac Type Severity Reaction Status Date / Time No Known Allergies Allergy Verified 08/29/20 20:59 Physical Exam Vitals: Vital Signs Temp Pulse Pulse Resp BP BP Pulse Ox 08/30/20 08:05 98 F 54 L 16 176/82 97 08/30/20 04:00 53 L 18 182/95 98 08/30/20 00:00 60 18 162/81 96 08/29/20 21:33 97.3 F L 49 L 18 181/88 96 08/29/20 21:17 97.9 F 54 L 18 160/92 96 08/29/20 20:20 54 L 18 160/92 96 08/29/20 19:23 58 L 18 155/80 100 08/29/20 18:04 97.9 F 39 L 18 165/80 98 Intake and Output 08/29/20 08/30/20 08/30/20 22:59 06:59 14:59 Intake Total 960 0 0 Balance 960 0 0 Intake: Oral 960 0 0 Other: Voiding Method Toilet Toilet # Voids 1 1 Weight 79.379 kg 81.3 kg In general patient is alert and oriented x 3 in no distress HEENT head normocephalic and atraumatic Neck is supple no JVD no goiter no lymphadenopathy no carotid bruit Chest examination is clear to auscultation no crackles no wheezing Cardiac exam reveals regular heart sounds S1 and S2 no gallops no murmurs Abdomen is soft nontender no organomegaly with normal bowel sounds Extremity exam reveals no edema no cyanosis or clubbing Neurological examination reveals no gross focal deficits Results CBC & Chem 7: 08/30/20 06:18 08/30/20 06:18 Labs: Abnormal Lab Results - Last 24 Hours (Table) 08/29/20 08/30/20 Range/Units 19:35 06:18 Chloride 109 H 110 H (98-107) mmol/L Magnesium 2.4 H (1.6-2.3) mg/dL Total Protein 6.2 L 6.1 L (6.3-8.2) g/dL Assessment and Plan Plan: Dizziness and lightheadedness Episodes of bradycardia with heart rate as low at 39 Underlying history of hypertension Underlying history of hyperlipidemia At this time patient is admitted to telemetry floor, she was maintained on metop rolol at home which was discontinued on admission Echocardiogram and carotid Doppler were ordered Cardiology consultation was requested
[2020-08-30] MEDS: ATORVASTATIN 10 MG TAB PO SCH (19:52)
[2020-08-30] MEDS: SODIUM CHLORIDE 0.9% 1,000 ML IV SCH (19:53)
[2020-08-30 20:46] VITALS: TEMP 97.9
--- NOTE | 2020-08-31 08:15 | US ---
EXAMINATION TYPE: US carotid duplex BILAT DATE OF EXAM: 08/31/2020 COMPARISON: NONE CLINICAL HISTORY: Dizziness. EXAM MEASUREMENTS: RIGHT: Peak Systolic Velocity (PSV) cm/sec ----- Right CCA: 62.4 ----- Right ICA: 59.3 ----- Right ECA: 69.3 ICA/CCA ratio: 1.0 RIGHT: End Diastole cm/sec ----- Right CCA: 18.2 ----- Right ICA: 20.9 ----- Right ECA: 10.2 LEFT: Peak Systolic Velocity (PSV) cm/sec ----- Left CCA: 56.7 ----- Left ICA: 69.6 ----- Left ECA: 64.8 ICA/CCA ratio: 1.2 LEFT: End Diastole cm/sec ----- Left CCA: 18.9 ----- Left ICA: 27.4 ----- Left ECA: 14.0 VERTEBRALS (direction of flow): Right Vertebral: Antegrade Left Vertebral: Antegrade Rhythm: Normal No significant velocity elevations, mild plaque. Some intimal thickening may be present. IMPRESSION: 1. Intimal thickening and mild atheromatous plaquing without significant flow-limiting stenosis. Criteria for Assigning % of Stenosis / Diameter reduction (Estimation based on the indirect measurements of the internal carotid artery velocities (ICA PSV). 1. Normal (no stenosis)=ICA PSV < 125 cm/s: ratio < 2.0: ICA EDV<40 cm/s. 2. Less than 50% stenosis=ICA PSV < 125 cm/s: ratio < 2.0: ICA EDV<40 cm/s. 3. 50 to 69% stenosis=ICA PSV of 125 to 230 cm/s: ration 2.0 ? 4.0: ICA EDV 40-100 cm/s. 4. Greater than 70% stenosis to near occlusion= ICA PSV > 230 cm/s: ratio > 4.0: ICA EDV > 100 cm/s. 5. Near occlusion= ICA PSV velocities may be low or undetectable: variable ratio and ICA EDV. 6. Total occlusion=unable to detect flow.
[2020-08-31] MEDS ORDERED: LOSARTAN 25 MG TAB PO SCH (09:00)
[2020-08-31] MEDS ORDERED: LOSARTAN-HCTZ 50-12.5 MG 1 EACH TAB PO SCH (09:00)
[2020-08-31] MEDS ORDERED: amLODIPine 10 MG TAB PO SCH (09:00)
[2020-08-31] MEDS: CHOLECALCIFEROL 25 MCG (1000 IU) TABLET PO SCH (09:06)
[2020-08-31] MEDS: APIXABAN 5 MG TAB PO SCH (09:06)
[2020-08-31] MEDS: ASCORBIC ACID 500 MG TAB PO SCH (09:06)
[2020-08-31] MEDS: ZINC SULFATE 220 MG CAP PO SCH (09:06)
[2020-08-31] MEDS ORDERED: amLODIPine 5 MG TAB PO STA (09:09)
[2020-08-31 09:35] LABS: Basophils # (A) 0.1 k/uL (0-0.2); Basophils % (A) 1 %; Eosinophils # (A) 0.2 k/uL (0-0.7); Eosinophils % (A) 3 %; HCT 46.5 % (34.0-46.0); HGB 15.4 gm/dL (11.4-16.0); Lymphocytes # (A) 1.4 k/uL (1.0-4.8); Lymphocytes % (A) 20 %; MCH 31.4 pg (25.0-35.0); MCHC 33.1 g/dL (31.0-37.0); MCV 94.7 fL (80.0-100.0); Mean Platelet Volume 7.6; Monocytes # (A) 0.5 k/uL (0-1.0); Monocytes % (A) 7 %; Neutrophils # (A) 4.5 k/uL (1.3-7.7); Neutrophils % (A) 67 %; Platelet Count 265 k/uL (150-450); RBC 4.91 m/uL (3.80-5.40); WBC 6.8 k/uL (3.8-10.6)
[2020-08-31 09:42] LABS: ALT 25 U/L (4-34); AST 30 U/L (14-36); African American GFR (CKD) >90 (>60 ml/min/1.73 sqM); Albumin 3.8 g/dL (3.5-5.0); Alkaline Phosphatase 104 U/L (38-126); Anion Gap 6 mmol/L; Blood Urea Nitrogen 16 mg/dL (7-17); Calcium 9.1 mg/dL (8.4-10.2); Carbon Dioxide 27 mmol/L (22-30); Chloride 108 mmol/L (98-107); Glucose 125 mg/dL (74-99); Non-African American GFR(CKD) 83 (>60 ml/min/1.73 sqM); Potassium 3.9 mmol/L (3.5-5.1); Sodium 141 mmol/L (137-145); Total Bilirubin 0.4 mg/dL (0.2-1.3); Total Protein 6.2 g/dL (6.3-8.2)
[2020-08-31 10:28] VITALS: RESP 20
--- NOTE | 2020-08-31 11:43 | P.PN ---
Subjective This is a pleasant 80-year-old female past medical history significant for paroxysmal atrial fibrillation, hyperlipidemia. She follows with Dr. Cici Ovalle in [place]. We have been asked to see in consultation for atrial fibrillation and bradycardia. She has been diagnosed with atrial fibrillation this year. She follows with Dr. Ovalle. She had a [employer] event monitor placed last month. She also recently had a stress test and echocardiogram earlier this month with her patient safety tech. Yesterday afternoon around 4pm she was with her daughter doing her normal daily activities. She began to have lightheadedness, dizziness, felt that she may pass out. She does occasionally feel palpitations. She monitored her heart rate on her [employer] and it read as her heart rate in the 150s, then would drop down and she knew she was in atrial fibrillation. She did take her metoprolol tartrate 25mg yesterday around 4-5pm when her heart rate was elevated. She states this has happened to her 3 times and she is always symptomatic. She was called by her patient safety tech office that "her heart had stopped" when asked more in detail she states she had around 10 second pauses on the monitor and was told to go to the emergency department for a pacemaker. She was told her stress test and echocardiogram were normal. Patient denies syncope or loss of consciousness, chest pain, shortness of breath, lower extremity edema, fatigue, weakness. Denies symptoms of orthopnea or PND. Denies history of coronary artery disease, diabetes, stroke, [place]. Family history includes mother having a CVA and ND, diabetes. Father had an ND. Her current home daily cardiac meds include metoprolol titrate 25 mg twice a day, atorvastatin 10 mg nightly, aspirin 81 mg daily, Eliquis 5 mg twice a day. Denies alcohol use. She is a nonsmoker. EKG reveals sinus rhythm, heart rate 64, right bundle-branch block, T wave inversion in lead V2 and V3. EKG 08/30 3:30 AM shows sinus bradycardia heart rate 57, right bundle-branch block, T wave inversions in V2. No prior EKGs to compare. 08/31/2020: Patient seen and examined at bedside, no acute distress. Blood pressure remains elevated but improving BP 160/92, heart rate 67, afebrile, maintaining oxygen saturations 96% on room air. Telemetry tracings indicate sinus mechanism heart rate 50-60s, no pauses and no atrial fibrillation noted while inpatient. Laboratory data reviewed, CBC unremarkable, sodium 141, potassium 3.9, BUN 16, serum creatinine 2.67, TSH within normal limits. Patient currently being mainta ined on Eliquis 5 mg twice a day, atorvastatin 10 mg daily, losartanhydrochlorothiazide 5012.5 mg daily Records obtained from Dr. Ovalle Office: -Lexiscan stress test 08/04/2020- normal, no reversible ischemia noted, no symptoms reported during test -Echocardiogram 08/04/2020 revealed ejection fraction of 65%, trace tricuspid regurgitation, trace mitral regurgitation -During patient's follow-up visit patients blood pressure was stable blood pressure 116/68 PHYSICAL EXAMINATION CONSTITUTIONAL: No apparent distress. HEENT: Head is normocephalic. No JVD. No carotid bruit. CHEST EXAMINATION: Lungs are clear to auscultation. HEART EXAMINATION: Regular rate and rhythm. S1, S2 heard. No murmurs, gallops or rub. ABDOMEN: Soft, nontender. Positive bowel sounds. EXTREMITIES: 2+ peripheral pulses, no lower extremity edema and no calf tenderness. NEUROLOGIC EXAMINATION: Patient is awake, alert and oriented x3. ASSESSMENT Lightheadedness, Dizziness Paroxysmal atrial fibrillation -[id number] score 4. On Eliquis 5mg BID. currently maintaining sinus mechanism Bradycardia possible sick sinus syndrome Hypertension PLAN -Will continue to hold patient's metoprolol tartrate -Discontinue amlodipine -Start losartan-Hctz 50-12.5mg daily -Continue anticoagulation Eliquis 5mg BID . No need for aspirin at this time -Continue statin -From cardiology perspective, patient without any signs of pauses or HR below 50s on telemetry for over 24 hours. We were unable to obtain records from [employer] heart monitor device at this time after multiple attempts. We obtained and reviewed records from Dr. Ovalle office and no acute findings noted. We recommend patient continue her heart monitor off her metoprolol tartrate to assess her rhythm and have close follow up with Dr. Ovalle. This was discussed with the patient in length. -Patient is stable to be discharged with above recommendations. Nurse Practitioner note has been reviewed, I agree with a documented findings and plan of care. Patient was seen and examined. Objective - Vital Signs Vital signs: Vital Signs Temp 97.9 F 08/31/20 08:00 Pulse 67 08/31/20 08:00 Resp 20 08/31/20 08:00 BP 168/92 08/31/20 08:00 Pulse Ox 96 08/31/20 08:00 Intake & Output 08/30/20 08/31/20 08/31/20 18:59 06:59 18:59 Intake Total 1418 1440 240 Balance 1418 1440 240 Weight 80.2 kg Intake: Intake, IV Titration 120 Amount Sodium Chloride 0.9% 1, 120 000 ml @ 20 mls/hr IV . Q24H [facility] Rx#:[id number] Oral 1298 1440 240 Other: Voiding Method Toilet Toilet # Voids 2 1 - Labs CBC & Chem 7: 08/31/20 09:11 08/31/20 09:11 Labs: Abnormal Lab Results - Last 24 Hours (Table) 08/31/20 08/31/20 Range/Units 09:11 09:11 Hct 46.5 H (34.0-46.0) % Chloride 108 H (98-107) mmol/L Glucose 125 H (74-99) mg/dL Total Protein 6.2 L (6.3-8.2) g/dL
[2020-08-31 12:43] VITALS: BP 165/76; PULSE 64
--- NOTE | 2020-08-31 12:58 | P.DS ---
Providers Date of admission: 08/29/20 19:55 Expected date of discharge: 08/31/20 Attending physician: Veronica Huerta Consults: 08/29/20 19:54 Consult Physician Routine Consulting Provider: Kadeem Barron Consult Reason/Comments: Bradycardia Do you want consulting provider notified?: Yes Primary care physician: Sapphire Boone Hospital Course: Discharge diagnosis Dizziness and lightheadedness Episodes of bradycardia with heart rate as low at 39 Underlying history of hypertension Underlying history of hyperlipidemia Carotid Doppler completed showing intimal thickening and mild documented plaquing without significant flow-limiting stenosis Hospital course Anisha De La Rosa, is an 80 year old female who presented to [facility] with a chief complaint of dizziness and lightheadedness She was evaluated in emergency room vital examination on presentation revealed a temperature of 96.6 pulse 59 respiration 16 blood pressure 163/93 pulse ox 96% on room air, patient was noticed to have evidence of bradycardia with heart rate in the 40s and 50s Laboratory data reveals a white blood count of 8.4 hemoglobin 14.4 platelet count 261 BUN 16 creatinine 0.71 Anderson virus PCR was negative Chest x-ray done in the emergency room did not reveal any acute cardiopulmonary disease, EKG done in the emergency room revealed normal sinus rhythm with right bundle branch block Patient was admitted to telemetry floor cardiology consultation was requested Her past medical history is significant for history of hypertension, history of hyperlipidemia, history of atrial fibrillation, history of breast cancer, there is a history of remote tobacco use patient stated that she quit 30 years ago. On review of systems at this time Patient is alert and oriented x 3 in no distress, she denies any complaints there is no fever or chills no headache or dizziness no chest pain no shortness of breath no palpitation no cough no nausea or vomiting no abdominal pain no diarrhea no blood in the stools no burning with urination no frequency or urgency and no hematuria, there is no weakness or numbness in any of the extremities no change in vision speech or gait. On 08/31/2020 patient alert and oriented 3 currently sitting up in chair. Patient reports that she has been up ambulating without any further episodes of dizziness. Heart rate has remained in the 60s 70s over the past 24 hours. Per cardiology Lopressor has been DC'd and patient has been started on losartan hydrochlorothiazide daily. Patient maintained on anticoagulation eliquis 5 mg twice a day. Aspirin DC'd per cardiology. Per cardiology patient to continue her heart monitor off her Lopressor to assess her rhythm and follow-up with her registered vascular technologist (rvt). Per cardiology patient is stable to be discharged. At this time patient denies chest pain or shortness of breath. Patient denies nausea vomiting or diarrhea. Patient denies any urinary burning or frequency. Patient Condition at Discharge: Stable Plan - Discharge Summary Discharge Rx Participant: Yes New Discharge Prescriptions: New Losartan-Hctz 50-12.5 mg [Hyzaar 50-12.5] 1 each PO DAILY 14 Days #14 tab Continue Atorvastatin [Lipitor] 10 mg PO HS Apixaban [Eliquis] 5 mg PO BID Selenium 100 mcg PO DAILY Ascorbic Acid [Vitamin C] 500 mg PO DAILY Biotin 10,000 mcg PO DAILY Zinc 50 mg PO DAILY Cholecalciferol [Vitamin D3 (25 Mcg = 1000 Iu)] 50 mcg PO DAILY Discontinued Metoprolol Tartrate 25 mg PO BID Aspirin EC [Ecotrin Low Dose] 81 mg PO DAILY Discharge Medication List Apixaban [Eliquis] 5 mg PO BID 08/29/20 [History] Ascorbic Acid [Vitamin C] 500 mg PO DAILY 08/29/20 [History] Atorvastatin [Lipitor] 10 mg PO HS 08/29/20 [History] Biotin 10,000 mcg PO DAILY 08/29/20 [History] Cholecalciferol [Vitamin D3 (25 Mcg = 1000 Iu)] 50 mcg PO DAILY 08/29/20 [History] Selenium 100 mcg PO DAILY 08/29/20 [History] Zinc 50 mg PO DAILY 08/29/20 [History] Losartan-Hctz 50-12.5 mg [Hyzaar 50-12.5] 1 each PO DAILY 14 Days #14 tab 08/31/20 [Rx] Follow up Appointment(s)/Referral(s): Sapphire Boone MD [Primary Care Provider] - 09/06/20 11:15 am Cici Ovalle DO [REFERRING] - 09/06/20 3:00 pm Activity/Diet/Wound Care/Special Instructions: Activity as tolerated Diet heart healthy Discharge Disposition: HOME SELF-CARE
--- NOTE | 2020-08-31 13:08 | ECHOF ---
Referral Reason:Dizziness MEASUREMENTS -------- HEIGHT: 170.2 cm WEIGHT: 79.8 kg BP: RVIDd: 3.2 cm (< 3.3) IVSd: 1.3 cm (0.6 - 1.1) LVIDd: 3.7 cm (3.9 - 5.3) LVPWd: 1.9 cm (0.6 - 1.1) IVSs: 1.7 cm LVIDs: 2.5 cm LVPWs: 1.7 cm LA Diam: 2.8 cm (2.7 - 3.8) Ao Diam: 3.1 cm (2.0 - 3.7) AV Cusp: 1.7 cm (1.5 - 2.6) MV EXCURSION: 17.310 mm (> 18.000) MV EF SLOPE: 114 mm/s (70 - 150) EPSS: 0.8 cm MV E Nato: 0.64 m/s MV DecT: 249 ms MV A Nato: 0.84 m/s MV E/A Ratio: 0.77 RAP: 5.00 mmHg RVSP: 17.49 mmHg FINDINGS -------- Undetermined rhythm. This was a technically adequate study. The left ventricular size is normal. There is mild concentric left ventricular hypertrophy. Overa ll left ventricular systolic function is low-normal with, an EF between 50 - 55 %. The right ventricle is normal in size. The left atrial size is normal. The right atrial size is normal. The aortic valve is trileaflet, and appears structurally normal. No aortic stenosis or regurgitation. Mild mitral regurgitation is present. Mild tricuspid regurgitation present. Right ventricular systolic pressure is normal at < 35 mmHg. There is no pulmonic regurgitation present. There is no pericardial effusion. CONCLUSIONS -------- 1. The left ventricular size is normal. 2. There is mild concentric left ventricular hypertrophy. 3. Overall left ventricular systolic function is low-normal with, an EF between 50 - 55 %. 4. The right ventricle is normal in size. 5. The left atrial size is normal. 6. The right atrial size is normal. 7. The aortic valve is trileaflet, and appears structurally normal. No aortic stenosis or regurgitati on. 8. Mild mitral regurgitation is present. 9. Mild tricuspid regurgitation present. 10. There is no pericardial effusion. STRAIGHTENING PRESS OPERATOR: Rebekah Livingston RDCS
[2020-09-01] MEDS ORDERED: amLODIPine 5 MG TAB PO SCH (09:00)
== END 2020-08-31 15:39 | disposition home or self-care (01) ==
LOC: EC 17:57 → 3SCARD 19:55 → INTOOBSV 19:55 → 3SCARD 20:49 → UNDODISIN 08-31 15:39
PROVIDERS: ADMIT Internal Medicine; ATTEND Internal Medicine
DX: I48.0 Paroxysmal atrial fibrillation (principal); E78.5 Hyperlipidemia, unspecified; R00.1 Bradycardia, unspecified; I10 Essential (primary) hypertension; I45.10 Unspecified right bundle-branch block; Z20.822 Contact with and (suspected) exposure to COVID-19; Z85.3 Personal history of malignant neoplasm of breast; Z87.891 Personal history of nicotine dependence; Z79.899 Other long term (current) drug therapy; Z79.82 Long term (current) use of aspirin; Z79.01 Long term (current) use of anticoagulants; Z82.49 Family history of ischemic heart disease and other diseases of the circulatory system; Z83.3 Family history of diabetes mellitus; Z82.3 Family history of stroke
CPT/HCPCS: 99285; 93005; 93306; 80053 ×3; 84443 ×2; 82550; 83735; 84484; 85025 ×3; 85610; 85730; 87635; 71046; 93880; G0378 ×3

== ENCOUNTER → 2021-01-31 | Outpatient (CLI) | payer MEDICARE ==
--- NOTE | 2021-01-31 12:23 | MM ---
Reason for exam: additional evaluation requested from prior study. Last mammogram was performed 1 year and 1 month ago. History: Patient is postmenopausal and has history of breast cancer at age 44. Family history of breast cancer in aunt at age 50. Benign US biopsy breast VAD RT of the right breast, October 11, 2014. Benign excisional biopsy of the right breast, March 29, 2000. Stereotactic core biopsy of the right breast, March 14, 2000. Excisional biopsy of the right breast, 1986. Mastectomy of the left breast, 1985. Core biopsy of the right breast. Excisional biopsy of the left breast. Took hormonal contraceptives for 10 years. Physical Findings: Nurse did not find any significant physical abnormalities on exam. MG 3D Diag Mammo W/Cad RT CC and MLO view(s) were taken of the right breast. Prior study comparison: December 21, 2019, right breast MG 3d diag mammo w/cad RT. December 08, 2018, right breast MG 3d diag mammo w/cad RT. The breast tissue is heterogeneously dense. This may lower the sensitivity of mammography. Stable benign calcifications. There is no discrete abnormality. No significant new findings when compared with previous films. These results were verbally communicated with the patient and result sheet given to the patient on 01/31/21. ASSESSMENT: Benign, BI-RAD 2 RECOMMENDATION: Follow-up diagnostic mammogram of the right breast in 1 year.
== END | disposition home or self-care (01) ==
LOC: RADMAMWWP 08:54
PROVIDERS: ATTEND Family Medicine
DX: R92.1 Mammographic calcification found on diagnostic imaging of breast (principal); Z80.3 Family history of malignant neoplasm of breast; Z78.0 Asymptomatic menopausal state
CPT/HCPCS: 77065; G0279; 77061

== ENCOUNTER → 2022-03-20 | Outpatient (CLI) | payer MEDICARE ==
--- NOTE | 2022-03-20 11:56 | MM ---
Reason for Exam: Additional evaluation requested from prior study. Last mammogram was performed 1 year(s) and 2 month(s) ago. Patient History: Menarche at age 11. First Full-Term at age 18. Postmenopausal. Breast cancer, left, age 44. Patient used Hormonal Contraceptives for 10 years. Core Biopsy on the Right side. 1985, Mastectomy on the Left side. 1986, Excisional Biopsy on the Right side. Excisional Biopsy on the Left side. 10/11/2014, Benign Core Biopsy on the right side. 03/29/2000, Benign Excisional Biopsy on the right side. 03/14/2000, Stereotactic Core Biopsy on the Right side. Paternal aunt had breast cancer, age 50. Prior Study Comparison: 10/11/2014 Right Diagnostic Mammogram, [facility]. 10/21/2015 Right Diagnostic Mammogram, [facility]. 10/30/2016 Right Diagnostic Mammogram, [facility]. 10/31/2017 Right Diagnostic Mammogram, [facility]. 12/08/2018 Right Diagnostic Mammogram, [facility]. 12/21/2019 Right Diagnostic Mammogram, [facility]. 01/31/2021 Right Diagnostic Mammogram, [facility]. Tissue Density: Right: There are scattered fibroglandular densities. Findings: Analyzed By CAD. Areas of asymmetric density remains unchanged. 2 microclips laterally in the right breast from prior biopsies. Calcifications posterior upper-outer quadrant on magnification views appear coarse and only 2 are identified. No discrete group at this time. Unchanged for a year all of which suggests a benign etiology. Otherwise, no significant change. Overall Assessment: Benign, BI-RAD 2 Management: Diagnostic Mammogram of the right breast in 1 year. 1. Patient should continue monthly self breast exams. 2. A clinical breast exam by your physician is recommended on an annual basis. 3. This exam should not preclude additional follow-up of suspicious palpable abnormalities. Results were given to the patient verbally at the time of exam. Electronically signed and approved by: Jeevan Penaloza M.D. Radiologist
== END | disposition home or self-care (01) ==
LOC: RADMAMWWP 10:16
PROVIDERS: ATTEND Family Medicine
DX: C50.912 Malignant neoplasm of unspecified site of left female breast (principal); Z80.3 Family history of malignant neoplasm of breast; Z78.0 Asymptomatic menopausal state; Z90.12 Acquired absence of left breast and nipple; Z98.890 Other specified postprocedural states
CPT/HCPCS: 77065; G0279; 77061

== ENCOUNTER → 2022-06-18 | Outpatient (CLI) | payer MEDICARE ==
[2022-06-18 16:24] LABS: African American GFR (CKD) 92.5 (60.0-200.0); Anion Gap 10.5 mmol/L (10.00-18.00); Blood Urea Nitrogen 14.3 mg/dL (9.0-27.0); Non-African American GFR(CKD) 79.9 (60.0-200.0); Potassium 4.3 mmol/L (3.5-5.5)
[2022-06-18 16:43] LABS: HGB 14.4 g/dL (12.0-15.0); MCH 30.5 pg (27.0-32.0); MCV 95.3 fL (80.0-97.0); Mean Platelet Volume 11.3 fL (9.5-12.2); NRBC Per 100 WBC 0 /100 WBCS (0.0-0.0); Platelet Count 264 X 10*3/uL (140-440); RBC 4.72 X 10*6/uL (4.10-5.20); RDW 12.9 % (11.5-14.5); WBC 7.37 X 10*3/uL (4.50-10.00)
== END | disposition home or self-care (01) ==
LOC: LABWHC1 09:22
PROVIDERS: ATTEND Internal Medicine Clinical Cardiac Electrophysiology
DX: Z01.812 Encounter for preprocedural laboratory examination (principal); I49.5 Sick sinus syndrome; I48.0 Paroxysmal atrial fibrillation
CPT/HCPCS: 36415; 80051; 82565; 84520; 85027

== ENCOUNTER 2022-06-26 05:49 | Day surgery (SDC) | payer MEDICARE ==
[2022-06-20 16:02] VITALS: BMI 29.0
[2022-06-26] MEDS ORDERED: SODIUM CHLORIDE 0.9% 1,000 ML IV ONE (06:02)
[2022-06-26] MEDS ORDERED: ISOPROTERENOL 250 MCG/1.25 ML SYR IV ONE (07:15)
[2022-06-26] MEDS ORDERED: ROCURONIUM 10 MG/ML (5 ML VIAL) IV ONE (07:15)
[2022-06-26] MEDS ORDERED: MIDAZOLAM 2 MG/2 ML VIAL ONE (07:15)
[2022-06-26] MEDS ORDERED: PHENYLEPHRINE-0.9% NACL SYG 1,000 MCG/10 ML SYRINGE ONE (07:15)
[2022-06-26] MEDS ORDERED: fentaNYL (PF) 50 MCG/ML 2 ML AMP ONE (07:15)
[2022-06-26] MEDS ORDERED: SUCCINYLCHOLINE CHLORIDE 200 MG/10 ML VIAL IV ONE (07:15)
[2022-06-26] MEDS ORDERED: PROPOFOL 10 MG/ML 20 ML VIAL IV ONE (07:15)
[2022-06-26] MEDS ORDERED: LIDOCAINE 2% INJ 20 MG/ML (2 ML VIAL) ONE (07:15)
[2022-06-26] MEDS ORDERED: HEPARIN SODIUM,PORCINE 10,000 UNIT/ML 1 ML VIAL ONE (07:15)
[2022-06-26] MEDS ORDERED: LIDOCAINE 1% INJ 10MG/ML (20 ML MDV) ONE (07:31)
[2022-06-26] MEDS ORDERED: LIDOCAINE 1% INJ 10MG/ML (20 ML MDV) SQ ONE (08:11)
[2022-06-26] MEDS ORDERED: IOPAMIDOL-370 100ML BTL INJ ONE (09:55)
--- NOTE | 2022-06-26 10:16 | P.HPCAR ---
History of Present Illness This is Dr. Delgado dictating an H/P on this patient The patient was interviewed and examined IMPRESSION / ASSESSMENT: 81-year-old female with recurrent paroxysmal atrial fibrillation despite flecainide Abnormal stress test with normal epicardial coronary arteries Sick sinus syndrome status post permanent pacemaker implantation Normal TSH PLAN: Proceed with pulmonary vein isolation. Continue anticoagulation HPI Patient continues to experience episodes of atrial fibrillation despite flecainide. She is quite symptomatic from these episodes No recent syncope no chest discomfort or angina No loss of consciousness no fever chills cough expectoration recently ROS: No fever chills or rigors, no cough, phlegm or expectoration, no nausea, vomiting or diarrhea, no hematuria, dysuria, no musculoskeletal complaints, no strokes or seizures, no skin lesions. EXAMINATION: No JVD, afebrile No orthopnea Clear lungs no rhonchi no crackles Normal heart sounds no murmurs Soft abdomen nontender No lower extremity edema REVIEW OF LABS, ECG & MEDICAL DATA Currently on ELIQUIS 5 mg twice daily, losartan 50 mrem twice daily, rosuvastatin 10 mg, Toprol tartrate 50 g twice daily and flecainide 50 mg twice daily Physical Exam Vitals: Vital Signs Temp Pulse Resp BP Pulse Ox 06/26/22 06:19 98.1 F 66 16 191/105 98 Intake and Output 06/25/22 06/26/22 06/26/22 22:59 06:59 14:59 Intake Total 800 Balance 800 Intake: IV 800 Other: Weight 84 kg Past Medical History Past Medical History: Atrial Fibrillation, Cancer, Chest Pain / Angina, Hyperlipidemia, Hypertension, Osteoarthritis (OA) Additional Past Medical History / Comment(s): SEE DR DELGADO'S H&P. hx. breast cancer 1985 History of Any Multi-Drug Resistant Organisms: None Reported Past Surgical History: Breast Surgery, Pacemaker Additional Past Surgical History / Comment(s): left mastectomy, cataracts removed Past Anesthesia/Blood Transfusion Reactions: No Reported Reaction Type of Cardiac Device: Permanent Pacemaker Device Placement Date:: September 2020 Past Psychological History: No Psychological Hx Reported Smoking Status: Former smoker Past Alcohol Use History: Rare Additional Past Alcohol Use History / Comment(s): quit smoking 1970, smoked for 20 yrs., 1ppd Past Drug Use History: None Reported Physical Examination Vital Signs Temp Pulse Resp BP Pulse Ox 06/26/22 06:19 98.1 F 66 16 191/105 98 Intake and Output 06/25/22 06/26/22 06/26/22 22:59 06:59 14:59 Intake Total 800 Balance 800 Intake: IV 800 Other: Weight 84 kg Results Current Medications Generic Name Dose Route Start Last Admin Trade Name Freq PRN Reason Stop Dose Admin Sodium Chloride 1,000 mls @ 20 mls/hr 06/26/22 06:10 Saline 0.9% IV 07/26/22 06:11 .Q24H KENDELL Intake and Output 06/25/22 06/26/22 06/26/22 22:59 06:59 14:59 Intake Total 800 Balance 800 Intake: IV 800 Other: Weight 84 kg
--- NOTE | 2022-06-26 10:21 | P.EPPROC ---
- EP Procedure Note Electrophysiology Procedure Note: PROCEDURE A. fib ablation/PVI cryoablation, successful isolation of family veins DIAGNOSIS Atrial fibrillation, symptomatic, refractory to therapy RESULT No left atrial appendage mass seen on intracardiac echo Successful A. fib ablation/pulmonary vein isolation of all veins using cryo-abla tion Complete entrance block in all 4 veins confirmed No evidence for phrenic nerve injury Esophageal deflection YES , left-sided esophagus PROCEDURE DETAILS Written informed consent prior to procedure. Patient brought to the EP lab. General anesthesia given. Heparin administered. ACT maintained above 300 seconds Pacemaker interrogated, Medtronic dual-chamber device. Impedances documented b aseline. Reprogrammed to AAI mode At the end of the procedure impedances to be interrogated. Stable. Thresholds stable Device reprogrammed to rate-responsive mode Both groins prepped and draped per protocol and venous sheaths placed. Esophagus intubated, circa catheter for temperature monitoring an endoscope for possible esophageal deflection. Phrenic nerve monitoring performed. Esophageal temperature monitoring performed. Esophageal deflection performed if circa catheter overlapping with the balloon or circa temperature less than 27.5C Intracardiac echocardiography performed. Pericardium evaluated. Left atrial appendage evaluated. Left atrium evaluated along with pulmonary veins Transseptal catheterization performed under fluoroscopic guidance and intracardiac echo guidance Cryoablation sheath exchanged, balloon catheter along with achieve catheter placed in the left atrium. Pulmonary veins isolated in the following sequence: Left superior pulmonary vein followed by left inferior pulmonary vein, followed by right inferior pulmonary vein and lastly right superior pulmonary vein. Phrenic nerve stimulation along with capture thresholds within the SVC and right superior pulmonary vein to identify the phrenic nerve proximity to the cryo- balloon. Pulmonary veins isolated and confirmed with entrance and exit block. Phrenic nerve integrity confirmed at the end of the procedure Diagnostic catheters for the high right atrium, His bundle, coronary sinus placed. LA and RA pressures recorded RA pressure: 12/7/10 LA pressure: 16/4/10 Diagnostic EP study with coronary sinus pacing and recording Baseline measurements: QRS wide at baseline 150 ms, QT interval 430 ms AH 104 and HV 43 ms Burst stimulation from the atria from 400 ms down to 250 ms. No atrial fibrillation induced High-dose Isuprel infused did know atrial fibrillation induced Venous sheaths were removed and hemostasis assured with a closure device. Patient extubated and transferred to recovery PROCEDURES PERFORMED Diagnostic EP study CS pacing and recording Left and right transseptal catheterization Catheter the mapping of the tachycardia Intracardiac echocardiography Pulmonary vein isolation with transseptal and comprehensive EPS, [id number] Drug infusion, +[id number]
[2022-06-26] MEDS ORDERED: ACETAMINOPHEN TAB 325 MG TAB PO PRN (10:23)
[2022-06-26] MEDS ORDERED: ACETAMINOPHEN IV (For NPO) 1,000 MG in EMPTY BAG 1 BAG IVPB ONE (13:30)
[2022-06-26] MEDS: SODIUM CHLORIDE 0.9% 1,000 ML IV SCH (18:31)
[2022-06-26] MEDS ORDERED: ATORVASTATIN 20 MG TAB PO SCH (21:00)
[2022-06-26] MEDS: LOSARTAN 50 MG TAB PO SCH (21:09)
[2022-06-26] MEDS: METOPROLOL TARTRATE 50 MG TAB PO SCH (21:09)
[2022-06-26] MEDS: APIXABAN 5 MG TAB PO SCH (21:09)
[2022-06-26] MEDS: FLECAINIDE 50 MG TAB PO SCH (21:09)
[2022-06-27 02:02] VITALS: TEMP 98.5
[2022-06-27] MEDS: SODIUM CHLORIDE 0.9% 1,000 ML IV SCH (03:08)
[2022-06-27 06:27] VITALS: RESP 16
[2022-06-27] MEDS: LOSARTAN 50 MG TAB PO SCH (07:52)
[2022-06-27] MEDS: METOPROLOL TARTRATE 50 MG TAB PO SCH (07:52)
[2022-06-27] MEDS: FLECAINIDE 50 MG TAB PO SCH (07:52)
[2022-06-27] MEDS: APIXABAN 5 MG TAB PO SCH (07:52)
--- NOTE | 2022-06-27 08:00 | P.DS ---
Providers Attending physician: Melo Delgado Primary care physician: [facility] Course: Patient complains of sore throat. The discomfort in the chest, pleuritic in nature, mild No dizziness lightheadedness She's been ambulating around in the room to the bathroom Vitals are stable Normal heart sounds no rub or murmur Breath sounds are clear no rhonchi no crackles Impression Paroxysmal atrial fibrillation that has failed flecainide Status post pulmonary vein isolation for management of atrial fibrillation yesterday, successful Underlying sick sinus syndrome status post pacemaker, Medtronic Plan Continue ELIQUIS Continue flecainide Follow-up in the office in 1-2 weeks Patient Condition at Discharge: Stable Plan - Discharge Summary Discharge Rx Participant: Yes New Discharge Prescriptions: No Action Apixaban [Eliquis] 5 mg PO BID Ascorbic Acid [Vitamin C] 500 mg PO DAILY Metoprolol Tartrate [Lopressor] 50 mg PO BID Rosuvastatin [Crestor] 10 mg PO HS Zinc 50 mg PO DAILY Cholecalciferol [Vitamin D3 (25 Mcg = 1000 Iu)] 50 mcg PO DAILY Losartan [Cozaar] 50 mg PO BID Flecainide [Tambocor] 50 mg PO Q12HR Discharge Medication List Apixaban [Eliquis] 5 mg PO BID 08/29/20 [History] Ascorbic Acid [Vitamin C] 500 mg PO DAILY 08/29/20 [History] Cholecalciferol [Vitamin D3 (25 Mcg = 1000 Iu)] 50 mcg PO DAILY 08/29/20 [History] Zinc 50 mg PO DAILY 08/29/20 [History] Losartan [Cozaar] 50 mg PO BID 04/18/22 [History] Metoprolol Tartrate [Lopressor] 50 mg PO BID 04/18/22 [History] Flecainide [Tambocor] 50 mg PO Q12HR 06/20/22 [History] Rosuvastatin [Crestor] 10 mg PO HS 06/20/22 [History] Follow up Appointment(s)/Referral(s): Melo Delgado MD [STAFF PHYSICIAN] - 2 Weeks Activity/Diet/Wound Care/Special Instructions: Post EP study - Ablation instructions 1. Keep access sites dry for 2 days. 2. No heavy lifting or straining for 2 days. 3. Avoid bending the hips repeatedly for 2 days. 4. You may go up and down stairs slowly Call if the following is noted 1. Bleeding, increasing swelling or pain at the access sites. 2. Increasing chest discomfort, especially upon taking a deep breath. 3. Increasing shortness of breath, at rest or with exertion. 4. Undue cough / phlegm 5. Difficulty or pain while swallowing. 6. Pain or change in color in the extremities. 7. Fever, chills, rigors. 8. Increasing headache or neurologic symptoms. 9. Dizziness, fainting, palpitations No change in medications Discharge Disposition: HOME SELF-CARE
[2022-06-27 09:10] VITALS: BP 105/64; PULSE 64
== END 2022-06-27 10:10 | disposition home or self-care (01) ==
LOC: CATHEP 05:49 → 6NMEDSUR 09:58 → CATHEP 06-27 10:10
PROVIDERS: ATTEND Internal Medicine Clinical Cardiac Electrophysiology
DX: I48.91 Unspecified atrial fibrillation (principal); E78.5 Hyperlipidemia, unspecified; I10 Essential (primary) hypertension; M19.90 Unspecified osteoarthritis, unspecified site; F10.90 Alcohol use, unspecified, uncomplicated; Z98.890 Other specified postprocedural states; Z98.41 Cataract extraction status, right eye; Z98.42 Cataract extraction status, left eye; Z95.0 Presence of cardiac pacemaker; Z90.12 Acquired absence of left breast and nipple; Z87.891 Personal history of nicotine dependence
CPT/HCPCS: 93623; 93653; C1894 ×2; C1769 ×3; C1760; C1730 ×2; C1759; C1893; C1733; J0690; J2001; Q9967

== ENCOUNTER → 2023-03-21 | Outpatient (CLI) | payer MEDICARE ==
--- NOTE | 2023-03-22 16:34 | MM ---
Reason for Exam: Hx of breast cancer, mastectomy. Last screening mammogram was performed 12 month(s) ago. Patient History: Menarche at age 11. First Full-Term at age 18. Postmenopausal. Breast cancer, left, age 44. Patient used Hormonal Contraceptives for 10 years. Core Biopsy on the Right side. 1985, Mastectomy on the Left side. 1986, Excisional Biopsy on the Right side. Excisional Biopsy on the Left side. 10/11/2014, Benign Core Biopsy on the right side. 03/29/2000, Benign Excisional Biopsy on the right side. 03/14/2000, Stereotactic Core Biopsy on the Right side. Paternal aunt had breast cancer, age 50. Prior Study Comparison: 12/21/2019 Right Diagnostic Mammogram, [facility]. 01/31/2021 Right Diagnostic Mammogram, [facility]. 03/20/2022 Right MG 3D diag mammo w/cad RT, [facility]. Tissue Density: Right: There are scattered fibroglandular densities. Findings: Analyzed By CAD. Pattern appears stable. Core markers are identified. No significant interval change is evident. No suspicious groups of microcalcifications, spiculated or lobular masses, architectural distortion or other secondary signs of malignancy are mammographically apparent. Overall Assessment: Benign, BI-RAD 2 Management: Diagnostic Mammogram of the right breast in 1 year. A negative mammogram report should not preclude additional follow up of suspicious palpable abnormalities. Patient should continue monthly self breast exam. A clinical breast exam by your physician is recommended on an annual basis and results should be correlated with mammographic findings. Electronically signed and approved by: Ruiz Donahue D.O. Radiologis
== END | disposition home or self-care (01) ==
LOC: RADMAMWWP 10:29
PROVIDERS: ATTEND Family Medicine
DX: C50.919 Malignant neoplasm of unspecified site of unspecified female breast (principal); R92.321 Mammographic fibroglandular density, right breast; Z80.3 Family history of malignant neoplasm of breast; Z78.0 Asymptomatic menopausal state; Z90.12 Acquired absence of left breast and nipple
CPT/HCPCS: 77065; G0279; 77061

== ENCOUNTER → 2024-03-23 | Outpatient (CLI) | payer MEDICARE ==
--- NOTE | 2024-03-23 11:03 | MM ---
Reason for Exam: Hx of breast cancer, mastectomy. Last screening mammogram was performed 12 month(s) ago. Patient History: Menarche at age 11. First Full-Term at age 18. Postmenopausal. Breast cancer, left, age 44. Patient used Hormonal Contraceptives for 10 years. Core Biopsy on the Right side. 1985, Mastectomy on the Left side. 1986, Excisional Biopsy on the Right side. Excisional Biopsy on the Left side. 10/11/2014, Benign Core Biopsy on the right side. 03/29/2000, Benign Excisional Biopsy on the right side. 03/14/2000, Stereotactic Core Biopsy on the Right side. Paternal aunt had breast cancer, age 50. Prior Study Comparison: 01/31/2021 Right Diagnostic Mammogram, [facility]. 03/20/2022 Right MG 3D diag mammo w/cad RT, [facility]. 03/21/2023 Right MG 3D diag mammo w/cad RT, [facility]. Tissue Density: Right: There are scattered areas of fibroglandular density. Analyzed By CAD. Overall Assessment: Benign, BI-RAD 2 Management: Screening Mammogram of the right breast in 1 year. Electronically signed and approved by: Cm Cano M.D.
== END | disposition home or self-care (01) ==
LOC: RADMAMWWP 10:18
PROVIDERS: ATTEND Family Medicine
DX: R92.321 Mammographic fibroglandular density, right breast (principal); Z78.0 Asymptomatic menopausal state; Z80.3 Family history of malignant neoplasm of breast; Z85.3 Personal history of malignant neoplasm of breast
CPT/HCPCS: 77065; G0279; 77061

== ENCOUNTER 2024-08-25 10:23 | Day surgery (SDC) | payer MEDICARE ==
[2024-08-24 11:31] VITALS: BMI 29.0
[~2024-08-25 10:23] MED LIST: LIDOCAINE 1% (10MG/ML) FOR IV START INTRADERMA PRN
[2024-08-25 11:12] VITALS: TEMP 97.7
[2024-08-25] MEDS: LACTATED RINGERS 1,000 ML IV SCH (11:17)
[2024-08-25] MEDS: IV FLUID CONTINUATION 1,000 ML IV ONE (11:18)
[2024-08-25] MEDS ORDERED: PROPOFOL 10 MG/ML 20 ML VIAL IV ONE (11:54)
--- NOTE | 2024-08-25 11:58 | P.GSHP ---
History of Present Illness H&P Date: 08/25/24 Chief Complaint: Change in bowel habits 84-year-old female here for colonoscopy. Last colonoscopy 12 years ago. Patient recently has had a lot of mucus with her stools. Says she sees blood occasionally. Constipation. No pain. Family history of colon cancer in her sister. Past Medical History Past Medical History: Atrial Fibrillation, Cancer, Chest Pain / Angina, Hyperlipidemia, Hypertension, Osteoarthritis (OA) Additional Past Medical History / Comment(s): hx. breast cancer 1985, sick sinus syndrome History of Any Multi-Drug Resistant Organisms: None Reported Past Surgical History: Breast Surgery, Pacemaker Additional Past Surgical History / Comment(s): left mastectomy, colonoscopies, cataracts removed Past Anesthesia/Blood Transfusion Reactions: No Reported Reaction Type of Cardiac Device: Permanent Pacemaker Device Placement Date:: September 2020 Past Psychological History: No Psychological Hx Reported Smoking Status: Former smoker Past Alcohol Use History: Occasional Additional Past Alcohol Use History / Comment(s): quit smoking 1970, smoked for 20 yrs., 1ppd Past Drug Use History: None Reported Medications and Allergies Home Medications Medication Instructions Recorded Confirmed Type Apixaban [Eliquis] 5 mg PO BID 08/29/20 08/25/24 History Ascorbic Acid [Vitamin C] 500 mg PO DAILY 08/29/20 08/25/24 History Cholecalciferol [Vitamin D3 (25 50 mcg PO DAILY 08/29/20 08/25/24 History Mcg = 1000 Iu)] Flecainide [Tambocor] 50 mg PO Q12HR 06/20/22 08/25/24 History Valsartan 320 mg PO HS 08/24/24 08/25/24 History carvediloL phosphate [Coreg Cr] 80 mg PO HS 08/24/24 08/25/24 History Allergies Allergy/AdvReac Type Severity Reaction Status Date / Time No Known Allergies Allergy Verified 08/25/24 11:07 Surgical - Exam Vital Signs Temp Pulse Resp BP Pulse Ox 97.7 F 71 14 117/81 96 08/25/24 11:11 08/25/24 11:11 08/25/24 11:11 08/25/24 11:11 08/25/24 11:11 Physical exam: General: Well-developed, well-nourished HEENT: Normocephalic, sclerae nonicteric Abdomen: Nontender, nondistended Extremities: No edema Neuro: Alert and oriented Assessment and Plan (1) Change in bowel habits Narrative/Plan: Will proceed with colonoscopy at this time. Current Visit: Yes Status: Acute Code(s): R19.4 - CHANGE IN BOWEL HABIT SNOMED Code(s): 28802195
--- NOTE | 2024-08-25 12:20 | P.PCN ---
Date of Procedure: 08/25/24 Procedure(s) Performed: PREOPERATIVE DIAGNOSIS: Change in bowel habits POSTOPERATIVE DIAGNOSIS: Transverse colon polyp, tortuous colon PROCEDURE: Colonoscopy with snare polypectomy ANESTHESIA: MAC SURGEON: Deepak Marin M.D. SPECIMENS: Transverse colon polyp ENDOSCOPIC PROCEDURE: The patient was placed on the endoscopy table in the left decubitus position. The Olympus colonoscope was inserted into the anus and passed under direct visualization to the base of the cecum. The appendiceal orifice was visualized. From that point the scope was slowly withdrawn inspecting all surfaces carefully. There were no neoplastic inflammatory or polypoid lesions throughout the cecum or ascending colon. In the transverse colon a flat polyp measuring 1.2 cm was removed in 2 pieces using the snare with cautery technique. The remainder of the transverse descending sigmoid and rectum appeared normal. There was no visible diverticulosis. There was no findings that would explain the patient's increased stool mucus seen at this time. Digital rectal examination was normal. The patient was taken to the re covery room in stable condition per anesthesia guidelines. RECOMMENDATIONS: Await biopsy results. Will contact patient with timing for next colonoscopy.
[2024-08-25 12:29] VITALS: RESP 16
[2024-08-25 12:44] VITALS: PULSE 63
[2024-08-25 12:52] VITALS: BP 113/65
== END 2024-08-25 13:08 | disposition home or self-care (01) ==
LOC: ORWHC2ENDO 10:23
PROVIDERS: ATTEND Surgery
DX: D12.3 Benign neoplasm of transverse colon (principal); I48.91 Unspecified atrial fibrillation; E78.5 Hyperlipidemia, unspecified; I10 Essential (primary) hypertension; Z95.0 Presence of cardiac pacemaker; Z87.891 Personal history of nicotine dependence; Z79.01 Long term (current) use of anticoagulants
CPT/HCPCS: 45385; J2704; 88305